=== PATIENT | male | born 1940 | race Caucasian/White ===

== ENCOUNTER 2022-06-17 11:11 | Outpatient (CLI) | payer MEDICARE, SELFPAY | END 2022-06-17 11:12 | disposition home or self-care (01) | PROVIDERS: PCP Internal Medicine; Visit Provider Specialist | DX: C44.42 Squamous cell carcinoma of skin of scalp and neck (principal) | CPT/HCPCS: 88305 ==

== ENCOUNTER 2023-07-07 13:30 | Outpatient (CLI) | payer MEDICARE, SELFPAY | END 2023-07-07 13:31 | disposition home or self-care (01) | LOC: CHSLAB 13:39 | PROVIDERS: PCP Internal Medicine; Visit Provider Specialist | DX: L85.9 Epidermal thickening, unspecified (principal) | CPT/HCPCS: 88305 ==

== ENCOUNTER 2024-03-08 15:48 | Outpatient (CLI) | payer MEDICARE, OTHER, SELFPAY ==
--- OUTSIDE RECORDS SUMMARY | 2024-03-10 19:58 | XMS_ITS | Clinical Summary ---
Author Organization [facility] [employer] Address [address] [place] [address] Care Team Providers Care Traveling Secretary Name Role Phone Curtis Hodgson MD Primary Care Provider [phone] Source [address] [id number] Affiliates and Associated Physician Practices is amultiple site organization consisting of ambulatory clinics and hospital sitesin [place], [place], [place] and [place]. This disclosure is being madepursuant to the Care Everywhere program and may not contain all information available regarding this patient. Last updated 17.[facility] [employer] Allergies No known active allergies Medications * Be aware that medications may not be up to date on this document. Alwaysverify current medications with the patient. Medication Sig Dispensed Refills Start Date End Date Status aspirin EC (ECOTRIN) 81 MG tablet once daily Active finasteride (PROSCAR) 5 MG tablet Take 5 mg by mouth once daily 06/27/2019 Active levothyroxine (SYNTHROID) 88 MCG tablet TAKE ONE TABLET BY MOUTH EVERY DAY 12/30/2018 Active Vitamins-Lipotropics (MULTIPLE VITAMIN) capsule 1 capsule once daily Active VITAMIN D PO Active sildenafil (VIAGRA) 100 MG tablet 06/06/2020 Active Active Problems Problem Noted Date Diagnosed Date Benign prostatic hyperplasia with weak urinary s tream 09/05/2019 Social History Tobacco Use Types Packs/Day Years Used Date Smoking Tobacco: Former Smokeless Tobacco: Never Comments:quit 50 yrs ago Alcohol Use Standard Drinks/Week Comments Not Currently 0 (1 standard drink = 0.6 oz pur e alcohol) Sex and Gender Information Value Date Recorded Sex Assigned at Not on file Gender Identity Not on file Sexual Orientation Not on file Last Filed Vital Signs Vital Sign Reading Time Taken Comments Blood Pressure 172/82 09/25/2020 12:12 PM CDT Pulse 68 09/25/2020 12:12 PM CDT Temperature 36.5 ??C (97.7 ??F) 09/25/2020 12:12 PM C DT Respiratory Rate 18 09/25/2020 12:12 PM CDT Oxygen Saturation 96% 09/25/2020 12:12 PM CDT Inhaled Oxygen Concentration - - Weight 67.4 kg (148 lb 9.6 oz) 09/25/2020 12:12 PM CDT Height 172.7 cm (5' 8 ) 09/25/2020 12:12 PM CDT Body Mass Index 22.59 09/25/2020 12:12 PM CDT Plan of Treatment Health Maintenance Due Date Last Done Comments DTAP/TDAP/TD VACCINES (1 - Tdap) 01/27/1959 PNEUMOCOCCAL VACCINE 50+ (1 of 1 - PCV) 01/27/1990 ZOSTER VACCINE (1 of 2) 01/27/1990 Respiratory Syncytial Virus (RSV) Vaccine Pt: or over 60 yrs (1 - 1-dose 75+ series) 01/27/2015 COVID-19 VACCINE (2 - season) 2023 05/04/2020 INFLUENZA VACCINE (#1) 2023 0, 11/19/2018, 11/19/2017, Additional history exists DEPRESSION SCREENING 02/17/2024 MEDICARE AWV ? CALENDAR YEAR 2024 HEPATITIS B VACCINE Aged Out No longe r eligible based on patient's age to complete this topic HIB VACCINE Aged Out No longer eligi ble based on patient's age to complete this topic HPV VACCINE Aged Out No longer eligi ble based on patient's age to complete this topic MENINGOCOCCAL (Group B) VACCINE Aged Out No longer eligible based on patient's age to complete this topic MENINGOCOCCAL VACCINE Aged Out No estelita renzo eligible based on patient's age to complete this topic Advance Directives * Full Code (Latest Code Status on File) Date Activated Date Inactivated Comments 09/05/2019 5:08 PM 09/06/2019 5:01 PM Care Teams Traveling Secretary Relationship Specialty Start Date End Date Curtis Hodgson MD PCP - General 04/15/19
--- OUTSIDE RECORDS SUMMARY | 2024-03-10 19:58 | XMS_ITS | Encounter Summary ---
Author Organization [employer] Address [address] [place] [address] Care Team Providers Care Light Equipment Operator Name Role Phone Unavailable Primary Care Provider Unavailabl e Encounter Details Date Type Department Care Team (Late st Contact Info) Description 07/03/2005 Outpatient Historical [facility] [address] 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
--- OUTSIDE RECORDS SUMMARY | 2024-03-10 19:58 | XMS_ITS | Clinical Summary ---
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
--- OUTSIDE RECORDS SUMMARY | 2024-03-10 19:58 | XMS_ITS | Patient Health Summary ---
Author Organization [facility] Address [address] [facility] [place] [address] Care Team Providers Care Powderer Name Role Phone Curtis Hodgson MD Primary Care Provider [phone] Note from [facility],non-owned Affiliates and Associated Physician Practices is amultiple site organization consisting of ambulatory clinics and hospital sitesin [place], [place], [place] and [place]. This disclosure is being madepursuant to the Care Everywhere program and may not contain all information available regarding this patient. Last updated 17.[facility] Allergies No known active allergies Medications * Be aware that medications may not be up to date on this document. Alwaysverify current medications with the patient. * aspirin EC (ECOTRIN) 81 MG tablet once daily * finasteride (PROSCAR) 5 MG tablet(Started 06/27/2019) Take 5 mg by mouth once daily * levothyroxine (SYNTHROID) 88 MCG tablet(Started 12/30/2018) TAKE ONE TABLET BY MOUTH EVERY DAY * Vitamins-Lipotropics (MULTIPLE VITAMIN) capsule 1 capsule once daily * VITAMIN D PO * sildenafil (VIAGRA) 100 MG tablet(Started 06/06/2020) Active Problems Problem Noted Date Diagnosed Date [...] Mass Index 22.59 09/25/2020 12:12 PM CDT Procedures * DERMATOPATHOLOGY(Performed 11/02/2023) * LA MSR PVR U&/BLADD CAPCTY US NON(Performed 09/25/2020) Performed for Benign prostatic hyperplasia with lower urinary tract symptoms, symptom details unspecified * PROC UROFLOWMETRY(Performed 09/25/2020) Performed for Benign prostatic hyperplasia with lower urinary tract symptoms, symptom details unspecified * CULTURE URINE(Performed 09/27/2019) Performed for Benign prostatic hyperplasia with lower urinary tract symptoms, symptom details unspecified * PROC UROFLOWMETRY(Performed 09/27/2019) Performed for Benign prostatic hyperplasia with lower urinary tract symptoms, symptom details unspecified * LA MSR PVR U&/BLADD CAPCTY US NON(Performed 09/27/2019) Performed for Benign prostatic hyperplasia with lower urinary tract symptoms, symptom details unspecified * URINALYSIS AUTO - POINT OF CARE (AMB) [facility](Performed 09/27/2019) Performed for Benign prostatic hyperplasia with lower urinary tract symptoms, symptom details unspecified * CARDIAC EKG ORDER(Performed 09/07/2019) * LA MSR PVR U&/BLADD CAPCTY US NON(Performed 09/07/2019) Performed for BPH with urinary obstruction * PROC UROFLOWMETRY(Performed 09/07/2019) Performed for BPH with urinary obstruction * CBC W AUTO DIFFERENTIAL(Performed 09/06/2019) Performed for Benign prostatic hyperplasia with weak urinary stream * BASIC METABOLIC PANEL (CALCIUM TOTAL)(Performed 09/06/2019) Performed for Benign prostatic hyperplasia with weak urinary stream * PATHOLOGY TISSUE(Performed 09/05/2019) Performed for Diagnosis unknown * TRANSURETHRAL RESECTION PROSTATE (TURP)(Performed 09/05/2019) Performed for Diagnosis unknown * ENDOTRACHEAL TUBE NOTE(Performed 09/05/2019) * SARS-COV-2 (COVID-19) IN HOUSE(Performed 09/02/2019) Performed for Pre-op testing * BASIC METABOLIC PANEL (CALCIUM TOTAL)(Performed 08/22/2019) Performed for BPH with urinary obstruction, Pre-op testing * URINALYSIS NO MICROSCOPIC NO CULTURE(Performed 08/22/2019) Performed for BPH with urinary obstruction, Pre-op testing * CBC W AUTO DIFFERENTIAL(Performed 08/22/2019) Performed for BPH with urinary obstruction, Pre-op testing * CULTURE URINE(Performed 08/22/2019) Performed for BPH with urinary obstruction, Pre-op testing * EKG 12-LEAD(Performed 08/22/2019) Performed for History of BPH * LA MSR PVR U&/BLADD CAPCTY US NON(Performed 06/29/2019) Performed for Lower urinary tract symptoms (LUTS) * URINALYSIS AUTO - POINT OF CARE (AMB) [facility](Performed 06/29/2019) Performed for Lower urinary tract symptoms (LUTS) * CULTURE URINE(Performed 06/29/2019) Performed for Lower urinary tract symptoms (LUTS) Results * DERMATOPATHOLOGY (11/02/2023 2:22 PM CDT) Case Report Dermatopathology Report ? Case: [id number] ? Authorizing Provider: ??Angelique Howard MD ? Collected: ? 11/02/2023 02:22 PM ? Ordering Location: ? [facility] - ??Received: ?11/03/2023 12:08 PM ? DermPath Lab ? Pathologist: ? Madelin Velasquez MD ? Specimens: ?? A) - Skin, left scalp ? B) - Skin, mid crown ? 4 3:40 PM CDT DERMATOPATHOLOGY LABORATORY Final Diagnosis Specimen A. SKIN, left scalp: ULCER WITH SUPERFICIAL DERMAL NECROSIS AND INFLAMED SERUM SCALE CRUST (L98.499) FIBROSING GRANULATION TISSUE (L90.5) SQUAMOUS CELL CARCINOMA NOT IDENTIFIED (L90.5) (see microscopic description and comment) Specimen B. SKIN, mid crown: ULCER WITH SUPERFICIAL DERMAL NECROSIS AND IMPETIGINIZED INFLAMED SERUM SCALE CRUST (L98.499) FIBROSING GRANULATION TISSUE (L90.5) SQUAMOUS CELL CARCINOMA NOT IDENTIFIED (L90.5) (see microscopic description and comment) 4 3:40 PM CDT DERMATOPATHOLOGY LABORATORY Clinical History A-B: R/O SCC 4 3:40 PM CDT DERMATOPATHOLOGY LABORATORY Gross Description Specimen A: Received is one formalin filled container labeled with the patient's name and designated left scalp. The specimen consists of a shave biopsy measuring 9x7x2 mm. Jar 0. Specimen B: Received is one formalin filled container labeled with the patient's name and designated mid crown. The specimen consists of a shave biopsy measuring 9x8x2 mm. Jar 0. 4 3:40 PM [facility] DERMATOPATHOLOGY LABORATORY Microscopic Description Specimen A. SKIN, left scalp: There is an ulcer, beneath which there are vascular proliferation, fibroblasts, and an edematous stroma. There is overlying inflamed serum scale crust. There are an increased number of fibroblasts and collagen bundles oriented parallel to the skin surface, dilated blood vessels some of which are oriented perpendicular to the skin surface, and a mixed inflammatory cell infiltrate in an edematous stroma. No squamous cell carcinoma is identified. GMS stain is negative for fungus. Gram stain is negative for bacteria. Mib-1 stain highlights proliferating keratinocytes confined to the basilar epidermis. 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 Specimen B. SKIN, mid crown: There is an ulcer, beneath which there are vascular proliferation, fibroblasts, and an edematous stroma. The overlying inflamed serum scale crust contains collections of bacteria highlighted by Gram stain as well as a few fungal yeast forms that are highlighted by a GMS stain. There are an increased number of fibroblasts and collagen bundles oriented parallel to the skin surface, dilated blood vessels some of which are oriented perpendicular to the skin surface, and a mixed inflammatory cell infiltrate in an edematous stroma. No squamous cell carcinoma is identified. Mib-1 stain highlights proliferating keratinocytes confined to the basilar epidermis. 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 4 3:40 PM [facility] DERMATOPATHOLOGY LABORATORY Disclaimer An external and internal positive and negative controls are appropriate for the histochemical, immunohistochemical and immunofluorescence stain(s) in this case (if any), except where stated explicitly. The performance characteristics of the stain(s) cited in this report were developed and its performance characteristic determined by the Dermatopathology Laboratory at [facility], directed by Dr. Dio Rosenthal. These tests need not be, and therefore are not, approved by the [place] Food and Drug Administration. The tests are used for clinical purposes. Billing Codes Specimen Charges Stain Charges 57514 [id number] 1 1 [id number] 1 1 1 1 1 1 4 3:40 PM CDT DERMATOPATHOLOGY LABORATORY Embedded Images 4 3:40 PM CDT DERMATOPATHOLOGY LABORATORY Pathology/Cytology TISSUE SPECIMEN FROM SKIN / Unknown 11/02/2023 2:22 PM CDT 11/03/2023 12:08 PM CDT Miscellaneous samples (specimen) TISSUE SPECIMEN FROM SKIN / Unknown 11/02/2023 2:22 PM CDT 11/03/2023 12:08 PM CDT Angelique Howard MD LAB - PATHOLOGY/CYTO LOGY ORDERABLES DERMATOPATHOLOGY LABORATORY [facility] - Department of Dermatology [address], [address] [phone] * LA MSR PVR U&/BLADD CAPCTY US NON (09/25/2020 12:22 PM CDT) Narrative Delfina Shaw - 09/25/2020 12:22 PM CDT Delfina Shaw ? 09/25/2020 12:23 PM PVR was 268 ml Rosa Elena Blankenship DO PROCEDURE/MINOR PEERZ RGICAL ORDERABLES * PROC UROFLOWMETRY (09/25/2020 11:55 AM CDT) Narrative Christiana Damian - 09/25/2020 11:55 AM CDT Christiana Damian ? 10/07/2020 11:37 PM Voiding Time ?T100 ?10 ??s Flow Time ? TQ ? 9 ??s Time to max Flow ??TQmax ? 2 ??s Max Flow Rate ? Qmax ?0.8 Ml/s Average Flow Rate ??Qave ? 0.6 Ml/s Voided Volume ? Vcomp ? 6 ml Rosa Elena Sotelo Krzysztof DO PROCEDURE/MINOR PEREZ RGICAL ORDERABLES * CULTURE URINE (09/27/2019 4:07 PM CDT) Only the most recent of3 resultswithin the time period is included. Culture Urine No growth (<100 CFU/mL) SHAHIDA 09/29/2019 7:10 AM CDT [facility] MICROBIOLOGY Urine URINE SPECIMEN OBTAINED BY CLEAN CATCH PROCEDURE / Unknown Collection / Unknown 09/27/2019 4:07 PM CDT 09/27/2019 5:42 PM CDT Rosa Elena Blankenship DO LAB - MICROBIOLOGY ORDERABLES [facility] MICROBIOLOGY [address] [place] [address], [facility] [phone] * PROC UROFLOWMETRY (09/27/2019 11:36 AM CDT) Narrative Christiana Damian - 09/27/2019 11:36 AM CDT Christiana Damian ? 09/27/2019 12:20 PM Voiding Time ?T100 ?16 ?? s Flow Time ? TQ ? 16 ??s Time to max Flow ??TQmax ? 6 ??s Max Flow Rate ? Qmax ?7.3 Ml/s Average Flow Rate ??Qave ? 4.4 Ml/s Voided Volume ? Vcomp ? 69 ml Rosa Elena Blankenship DO PROCEDURE/MINOR PEREZ RGICAL ORDERABLES * LA MSR PVR U&/BLADD CAPCTY US NON (09/27/2019 11:36 AM CDT) Narrative Christiana Damian - 09/27/2019 11:36 AM CDT Christiana Damian ? 09/27/2019 12:20 PM Bladder scan completed. 0ml post void residual. Rosa Elena Blankenship DO PROCEDURE/MINOR PEREZ RGICAL ORDERABLES * URINALYSIS AUTO - POINT OF CARE (AMB) [facility] (09/27/2019) Only the most recent of2 resultswithin the time period is included. Glucose UA neg Bilirubin UA POCT neg Ketones UA POCT neg Specific [place] UA 1.015 Blood Urine POCT 80 pH UA 6.0 Protein UA 15 Urobilinogen UA 0.2 Nitrite UA neg WBC UA 125 Urine URINE / Unknown 09/27/2019 Rosa Elena Blankenship DO LAB - POINT OF CAR E ORDERABLES * CARDIAC EKG ORDER (09/07/2019 1:34 PM CDT) Narrative 09/07/2019 1:34 PM CDT Ordered by an unspecified provider. Scanned Document CARDIAC SERVICES ORD ERABLES * LA MSR PVR U&/BLADD CAPCTY US NON (09/07/2019 12:13 PM CDT) Narrative Carlota Mendoza - 09/07/2019 12:13 PM CDT Carlota Mendoza ? 09/07/2019 12:13 PM Bladder scan completed post patient void with 0ml present in bladder Rosa Elena Blankenship DO PROCEDURE/MINOR PEREZ RGICAL ORDERABLES * PROC UROFLOWMETRY (09/07/2019 12:13 PM CDT) Narrative Carlota Mendoza - 09/07/2019 12:13 PM CDT Carlota Mendoza ? 09/07/2019 12:13 PM Using sterile technique, the free end of the johnson catheter was connected to bottle of sterile water. A total of 240 cc sterile irrigant was instilled into the bladder by gravity at which point the patient described the urge to void. ??The catheter was removed and the patient voided 240cc. Pt tolerated well and no complaints of pain or discomfort noted at this time. Rosa Elena Sotelo Krzysztof SERNA PROCEDURE/MINOR PEREZ RGICAL ORDERABLES * (ABNORMAL) CBC W AUTO DIFFERENTIAL (09/06/2019 5:49 AM CDT) Only the most recent of2 resultswithin the time period is included. WBC 11.7(H) 3.5 - 10.5 10? 3 /uL 09/06/2019 6:30 AM [facility] RBC 4.41 4.30 - 5.70 10? 6 /uL 09/06/2019 6:30 AM [facility] Hemoglobin 12.8(L) 13.5 - 17.5 g/dL 09/06/2019 6:30 AM [facility] Hematocrit 40.0 39.0 - 50.0 % 09/06/2019 6:30 AM [facility] MCV 90.7 81.0 - 97.0 fL 09/06/2019 6:30 AM [facility] MCH 29.0 28.0 - 34.0 pg 09/06/2019 6:30 AM [facility] MCHC 32.0 32.0 - 36.0 g/dL 09/06/2019 6:30 AM [facility] Platelet Count 244 150 - 400 10? 3 /uL 09/06/2019 6:30 AM [facility] RDW-SD 49.2 36.0 - 50.0 fL 09/06/2019 6:30 AM [facility] RDW-CV 14.6 11.2 - 14.8 % 09/06/2019 6:30 AM [facility] MPV 10.3 9.3 - 12.8 fL 09/06/2019 6:30 AM [facility] nRBC Absolute 0.00 0 10? 3 /uL 09/06/2019 6:30 AM [facility] nRBC Auto 0.0 0 /100 WBC 09/06/2019 6:30 AM [facility] Neutrophils % 85.3(H) 35.0 - 70.0 % 09/06/2019 6:30 AM [facility] Lymphocytes % 7.4(L) 19.7 - 55.1 % 09/06/2019 6:30 AM CDT [facility] Monocytes % 6.6 3.0 - 15.0 % 09/06/2019 6:30 AM T [facility] Eosinophils % 0.0 0.0 - 6.0 % 09/06/2019 6:30 AM T [facility] Basophil % 0.2 0.0 - 1.5 % 09/06/2019 6:30 AM T [facility] Neutrophils Absolute 10.0(H) 1.6 - 7.0 10? 3 /uL 09/06/2019 6:30 AM [facility] Lymphocyte Absolute 0.9 0.8 - 2.9 10? 3 /uL 09/06/2019 6:30 AM [facility] Monocytes Absolute 0.77(H) 0.14 - 0.66 10? 3 /uL 09/06/2019 6:30 AM [facility] Eosinophils Absolute 0.00 0.00 - 0.45 10? 3 /uL 09/06/2019 6:30 AM [facility] Basophils Absolute 0.02 0.00 - 0.06 10? 3 /uL 09/06/2019 6:30 AM [facility] Immature Granulocytes % 0.5 0.0 - 1.0 % 09/06/2019 6:30 AM [facility] Blood BLOOD SPECIMEN / Unknown Lab Venipuncture / Unknown 09/06/2019 5:49 AM CDT 09/06/2019 6:22 AM CDT Vega Swann MD LAB - HEMATOLOGY ORDERABLES [address] [phone] [phone] * BASIC METABOLIC PANEL (CALCIUM TOTAL) (09/06/2019 5:48 AM CDT) Only the most recent of2 resultswithin the time period is included. BUN 15 7 - 26 mg/dL 09/06/2019 6:46 AM [facility] Creatinine 0.9 0.6 - 1.2 mg/dL 09/06/2019 6:46 AM [facility] Sodium 136 136 - 145 mmol/L 09/06/2019 6:46 AM [facility] Potassium 4.3 3.5 - 4.5 mmol/L 09/06/2019 6:46 AM [facility] Chloride 107 98 - 107 mmol/L 09/06/2019 6:46 AM [facility] CO2 22 22 - 29 mmol/L 09/06/2019 6:46 AM [facility] Glucose 115 70 - 115 mg/dL 09/06/2019 6:46 AM [facility] Calcium 8.5 8.4 - 10.2 mg/dL 09/06/2019 6:46 AM [facility] Anion Gap 11 8 - 18 09/06/2019 6:46 AM [facility] BUN/Creatinine Ratio 17 7 - 23 09/06/2019 6:46 AM [facility] Osmolality Calculated 284 270 - 300 mOsm/kg 09/06/2019 6:46 AM [facility] eGFR >60 >60 mL/min/1.7 3 m2 09/06/2019 6:46 AM [facility] Blood BLOOD SPECIMEN / Unknown Lab Venipuncture / Unknown 09/06/2019 5:48 AM CDT 09/06/2019 6:22 AM CDT Vega Swann MD LAB - CHEMISTRY ORDERABLES Performing Organization Address [facility]/State/[facility] Co de Phone Number [address] [phone] [phone] * PATHOLOGY TISSUE (09/05/2019 2:27 PM CDT) Case Report Surgical Pathology Report ? Case: [id number] ? Authorizing Provider: ??Rosa Elena Blankenship, DO ?Collected: ? 09/05/2019 02:27 PM ? Ordering Location: ? [facility] ? Received: ?09/06/2019 05:04 AM ? Pathologist: ? Claudia Mariee Mai, DO ? Specimen: ?Prostate, prostate chips for permanent ? 09/08/2019 6:46 PM [facility] Final Diagnosis Prostate chips, transurethral resection: - Stromal and glandular hyperplasia. - Focal chronic inflammation. 09/08/2019 6:46 PM [facility] Microscopic Description and Comment Microscopic examination substantiates the final diagnosis. 09/08/2019 6:46 PM [facility] Clinical History The patient is a 79-year-old man with a diagnosis of lower urinary tract symptoms, benign prostatic hyperplasia with incomplete bladder emptying and gross hematuria. Procedure: Cystoscopy, bipolar TURP. 09/08/2019 6:46 PM [facility] Gross Description The requisition and specimen label(s) are identified with the patient name. Received in formalin is a 15.9 g, 5.5 x 5 x 1.5 cm aggregate of valencia-kaur, rubbery soft tissue. Staffing Operations Manager sections are submitted in cassettes A1-[id number]. [facility]/angie 09/08/2019 6:46 PM [facility] Disclaimer The performance characteristics of all immunohistochemical and indirect immunofluorescence stains (if any) cited in this report were determined by the Histopathology Laboratory of [facility]. Some of these tests were developed by our own laboratory and have not been cleared or approved by the US Food and Drug Administration. The FDA does not require this test to go through premarket FDA review. These tests are used for clinical purposes. They should not be regarded as investigational or for research. This laboratory is certified under the Clinical Laboratory Improvement Amendments (CLIA) as qualified to perform high complexity clinical laboratory testing. This case has been personally reviewed and interpreted by the attending (teaching) pathologist. 09/08/2019 6:46 PM CDT [facility] Embedded Images 09/08/2019 6:46 PM CDT [facility] Biopsy, NOS ENTIRE PROSTATE / Unknown 09/05/2019 2:27 PM CDT 09/06/2019 5:04 AM CDT Comment:Pre-op diagnosis: Lower urinary tract symptoms (LUTS) - Primary Benign prostatic hyperplasia with incomplete bladder emptying Gross hematuria R39.9, N40.1, R39.14, R31.0 Rosa Elena Blankenship DO LAB - PATHOLOGY/CY TOLOGY ORDERABLES Performing Organization Address City/State/[facility] Co de Phone Number [facility] [address] [phone] * ETT LINE PERFORMABLE (09/05/2019 2:03 PM CDT) Narrative Norma Byers (Moustapha), FORESTRY AID-BODY SPECIALIST - 09/05/2019 2:03 PM CDT Norma Byers (Moustapha), FORESTRY AID-BODY SPECIALIST ? 09/05/2019 ??2:04 PM Endotracheal Tube Placement: ? Patient Location: OR. Intubation Event Date/Time: ??09/05/2019 1:59 PM Procedure: intubation ([id number]). Procedure Section: ?? Sedation: under general anesthesia. Indications for Airway Management: ??anesthesia Procedure pretreatments used? ??No Induction: standard IV Patient Position: ??sniffing Mask Ventilation: easy. Blade Type: Williams Blade Size: 3 Laryngoscopy View: grade 1 (full cords) Tube: endotracheal tube Placement: oral Tube type: cuff - inflated Tube Size (MM): 8 Depth of Insertion (CM): 23 Measured From: lips Cuff volume (mL): ??8 Cuff Inflated With: air Number of Attempts: 1. Ventilation between attempts: No. Placement Verified By: CO2 monitor, chest auscultation, bilateral breath sounds and direct visualization Tube secured with: ??adhesive tape. Dentition unchanged? ??Yes Difficult Airway? ??No. Procedure Start Time: 09/05/2019 1:59 PM. Staff Section ?? Anesthesia Provider: Norma Byers), FORESTRY AID-BODY SPECIALIST, Performed the procedure Eldon Peter DO GENERAL ANESTHESIA ORDERABLES * SARS-COV-2 (COVID-19) PRE-SURICAL/PROCEDURE (09/02/2019 11:38 AM CDT) COVID-19 PCR Not detected Not detected, Invalid 09/03/2019 1:48 AM CDT [facility]CRO[facility] Microbiology SPECIMEN FROM NASOPHARYNGEAL STRUCTURE / Unknown Collection / Unknown 09/02/2019 11:38 AM CDT 09/02/2019 11:39 AM CDT Narrative [facility] - 09/03/2019 1:48 AM CDT This Real Time RT-PCR assay was developed and its performance characteristics determined by [facility]. This test has been authorized by the Food and Drug administration (FDA)under an Emergency Use Authorization (EUA). This test has been validated in accordance with the FDA's guidance document Policy for Diagnostic Testing in Laboratories Certified to perform High Complexity Testing under CLIA prior to Emergency Use Authorization for Coronavirus Disease-2019 during the Public Health Emergency issued on April 16, 2019. FDA independent review of this validation is pending. This test is only authorized for the duration of time the declaration that circumstances exist justifying the authorization of emergency use of in vitro diagnostic tests for detection of SARS-CoV-2 virus and/or diagnosis of COVID-19 infection under section 564(b)(1) of the Act, 21 U.S.C 360bbb-3 (b)(1), unless the authorization is terminated or revoked sooner. Rosa Elena Blnakenship DO LAB - MICROBIOLOGY ORDERABLES [facility]CRO[facility] [address] [place] [address], [facility] [phone] * URINALYSIS NO MICROSCOPIC NO CULTURE (08/22/2019 11:51 AM CDT) Color UA Yellow Straw, Yellow, Colorless 08/22/2019 12:35 PM CDT [facility] Clarity UA Clear Clear, Slt Cloudy 08/22/2019 12:35 PM CDT [facility] Specific [place] UA 1.013 1.005 - 1.030 08/22/2019 12:35 PM CDT [facility] pH UA 7.0 5.0 - 8.0 pH 08/22/2019 12:35 PM CDT [facility] Protein UA Negative Negative mg/dL 08/22/2019 12:35 PM CDT [facility] Glucose UA Negative Negative mg/dL 08/22/2019 12:35 PM CDT [facility] Ketone UA Negative Negative mg/dL 08/22/2019 12:35 PM CDT [facility] Bilirubin UA Negative Negative mg/dL 08/22/2019 12:35 PM CDT [facility] Blood UA Negative Negative 08/22/2019 12:35 PM CDT [facility] Nitrite UA Negative Negative 08/22/2019 12:35 PM CDT [facility] Leukocyte Esterase Negative Negative 08/22/2019 12:35 PM CDT [facility] Urobilinogen UA Negative Negative mg/dL 08/22/2019 12:35 PM CDT [facility] Urine URINE SPECIMEN OBTAINED BY CLEAN CATCH PROCEDURE / Unknown Collection / Unknown 08/22/2019 11:51 AM CDT 08/22/2019 12:08 PM CDT Narrative [facility] - 08/22/2019 12:35 PM CDT Rosa Elena Blankenship DO LAB - URINALYSIS O RDERABLES [address] [address], [facility] [phone] * EKG 12-LEAD (08/22/2019 10:48 AM CDT) Ventricular Rate 57 BPM [facility] Atrial Rate 57 BPM [facility] P-R Interval 154 ms [facility] QRS Duration ms 84 ms [facility] Q-T Interval ms 416 ms [facility] QTC Calculation (Bezet) 404 ms [facility] Calculated P Wren 49 degrees [facility] Calculated R Wren 18 degrees [facility] Calculated T Wren 33 degrees [facility] Interpretation EKG SINUS BRADYCARDIA WITH PREMATURE ATRIAL COMPLEXES OTHERWISE NORMAL ECG NO PREVIOUS ECGS AVAILABLE Confirmed by fellow Nae Hooker ([id number]) on 08/22/2019 2:41:57 PM Confirmed by Paola Lind ([id number]) on 10/15/2019 7:16:25 PM [facility] 08/22/2019 10:4 8 AM CDT 10/15/2019 7:16 PM CDT Hernando Herrera DO ECG ORDERABLES [facility] * LA MSR PVR U&/BLADD CAPCTY US NON (06/29/2019 12:18 PM CDT) Narrative Galina Damico LPN - 06/29/2019 12:18 PM CDT Galina Damico LPN ? 07/06/2019 12:09 PM Post void residual: 168mL Rosa Elena Blankenship DO PROCEDURE/MINOR PEREZ RGICAL ORDERABLES Care Teams Powderer Relationship Specialty Start Date End Date Curtis Hodgson MD PCP - General 04/15/19
--- OUTSIDE RECORDS SUMMARY | 2024-03-10 19:58 | XMS_ITS | Encounter Summary ---
Author Organization [facility] Address [address] [place] [address] Care Team Providers Care Medical Biller Name Role Phone Curtis Hodgson MD Primary Care Provider [phone] Encounter Details Date Type Department Care Team (Late st Contact Info) Description 11/02/2023 Lab Requisition [facility] - DermPath Lab [address] [place] [id number] Angelique Howard MD [address] [place] [address] Social History Tobacco Use Types Packs/Day Years [...] on file documented as of this encounter Procedures Procedure Name Priority Date/Time Associated Diagnosis Comments DERMATOPATHOLOGY Routine 11/02/2023 2:22 PM CDT documented in this encounter Results * DERMATOPATHOLOGY (11/02/2023 2:22 PM CDT) Case Report Dermatopathology Report ? Case: [id number] ? Authorizing Provider: ??Angelique Howard MD ? [...] microscopic description and comment) 4 3:[address] [facility] DERMATOPATHOLOGY LABORATORY Clinical History A-B: R/O SCC 4 3:40 PM T DERMATOPATHOLOGY LABORATORY Gross Description Specimen A: Received [...] 9x8x2 mm. Jar 0. 4 3:40 PM T DERMATOPATHOLOGY LABORATORY Microscopic Description Specimen A. SKIN, [...] the correct clinical setting. 4 3:40 PM CDT DERMATOPATHOLOGY LABORATORY Disclaimer An external and internal positive and negative controls are appropriate for the histochemical, immunohistochemical and immunofluorescence stain(s) in this case (if any), except where stated explicitly. The performance characteristics of the stain(s) cited in this report were developed and its performance characteristic determined by the Dermatopathology Laboratory at [facility], directed by Dr. Dio Rosenthal. These tests need not be, and therefore are not, approved by the [place] Food and Drug Administration. The tests are used for clinical purposes. Billing Codes Specimen Charges Stain Charges 82394 26831 1 1 71515 [id number] 42129 [id number] 72142 02828 1 1 1 1 1 1 4 3:40 PM CDT DERMATOPATHOLOGY LABORATORY Embedded Images 4 3:40 PM CDT DERMATOPATHOLOGY LABORATORY Pathology/Cytology TISSUE SPECIMEN FROM SKIN / Unknown 11/02/2023 2:22 PM CDT 11/03/2023 12:08 PM CDT Miscellaneous samples (specimen) TISSUE SPECIMEN FROM SKIN / Unknown 11/02/2023 2:22 PM CDT 11/03/2023 12:08 PM CDT Angelique Howard MD LAB - PATHOLOGY/CYTO LOGY ORDERABLES DERMATOPATHOLOGY LABORATORY [facility] Department of Dermatology [address], [address] [phone] documented in this encounter Visit Diagnoses Not on filedocumented in this encounter Care Teams Medical Biller Relationship Specialty Start Date End Date Curtis Hodgson MD PCP - General 04/15/19 documented as of this encounter
--- OUTSIDE RECORDS SUMMARY | 2024-03-10 19:58 | XMS_ITS | Encounter Summary ---
Author Organization [employer] Address [address] [place] [address] Care Team Providers Care Coating Operator Name Role Phone Unavailable Primary Care Provider Unavailabl e Encounter Details Date Type Department Care Team (Latest Contact Info) Description 07/03/2005 Outpatient Historical [facility] CARDIOPULMONARY Janes Srinivasan MD Melanoma of Skin, Site Unspecified (CMS/HCC) (Primary Dx) Social History Tobacco Use Types Packs/Day Years Used Date Smoking Tobacco: Never Assessed Sex and Gender Information Value Date Recorded Sex Assigned at Not on file Legal Sex Male 3:[address] AM [employer] Gender Identity Not on file Sexual Orientation Not on file documented as of this encounter Plan of Treatment Not on file documented as of this encounter Visit Diagnoses Diagnosis Melanoma of skin, site unspecified (CMS/HCC)- Primary Melanoma of skin, site unspecified documented in this encounter
--- OUTSIDE RECORDS SUMMARY | 2024-03-10 19:58 | XMS_ITS | Referral Summary ---
Author Organization [facility] [employer] Address [address] [place] [address] Care Team Providers Care Dumpling Machine Operator Name Role Phone Curtis Hodgson MD Primary Care Provider [phone] Source Comments [facility],non-[facility] health Affiliates and Associated Physician Practices is amultiple site organization consisting of ambulatory clinics and hospital sitesin [place], [place], [place] and [place]. This disclosure is being madepursuant to the Care Everywhere program and may not contain all information available regarding this patient. Last updated 17.[facility] [employer] Allergies No known active allergies Medications * [...] 09/25/2020 12:12 PM CDT Plan of Treatment Not on file Advance Directives * Full Code (Latest Code Status on File) Date Activated Date Inactivated Comments 09/05/2019 5:08 PM 09/06/2019 5:01 PM Care Teams Dumpling Machine Operator Relationship Specialty Start Date End Date Curtis Hodgson MD PCP - General 04/15/19
== END 2024-03-08 15:49 | disposition home or self-care (01) ==
PROVIDERS: PCP Specialist; Visit Provider Specialist
DX: C44.629 Squamous cell carcinoma of skin of left upper limb, including shoulder (principal)
CPT/HCPCS: 88305